=== PATIENT | female | born 1955 | race Caucasian/White ===

== ENCOUNTER 2019-02-19 07:26 | Day surgery (SDC) | payer MEDICAID ==
[2019-02-19] MEDS ORDERED: Midazolam 1 MG/ML 2 ML SDV ONE (07:47)
[2019-02-19] MEDS ORDERED: fentaNYL 100 MCG/2 ML SDV ONE (07:47)
[2019-02-19] MEDS ORDERED: Propofol 200 MG/20 ML SDV ONE ×2 (07:47→09:50)
[2019-02-19] MEDS ORDERED: Lactated Ringers 1,000 ML IV SCH (08:15)
[2019-02-19] MEDS ORDERED: Atropine 0.4 MG/ML SDV ONE (09:45)
--- NOTE | 2019-02-19 14:45 | OR ---
DATE OF PROCEDURE: 02/19/2019 PREOPERATIVE DIAGNOSIS: History of colon polyps. POSTOPERATIVE DIAGNOSES: Unremarkable colonoscopy, history of colon polyps. PROCEDURE: Colonoscopy to the cecum. SURGEON: Frank Lynne MD ANESTHESIA: IV anesthesia with monitored anesthesia care. INDICATION: This 63-year-old white female is referred for a colonoscopy because of a history of colon polyps. She says her last colonoscopic exam was done 6 years ago. I counseled her for the procedure, including risks and alternatives, and she gave her informed consent to proceed. DESCRIPTION OF PROCEDURE: The patient was placed in the left lateral decubitus position. IV anesthesia was administered by the Anesthesia Service. Time-out was held. A rectal exam was performed, which was unremarkable. The flexible video Olympus colonoscope was introduced through her anus, up her rectum, and out her colon all the way to the cecum. To accomplish this, we had to apply some abdominal compression. Once the cecum was reached, the scope was slowly withdrawn, examining the mucosa throughout. No mucosal abnormalities were noted. The scope was retroflexed in the rectum with the distal rectum appearing unremarkable. The scope was straightened and removed. She tolerated the procedure well. Frank Lynne MD /[id number]
== END 2019-02-19 11:06 | disposition home or self-care (01) ==
LOC: JP.SDS 07:26
PROVIDERS: ATTEND Surgery
DX: Z12.11 Encounter for screening for malignant neoplasm of colon (principal); E03.9 Hypothyroidism, unspecified; F41.9 Anxiety disorder, unspecified; Z86.010 Personal history of colon polyps
CPT/HCPCS: 45378; J0461; J2250; J2704; J3010; J7120

== ENCOUNTER 2022-02-13 09:39 | Emergency (ER) | payer MEDICARE ==
[2022-02-13] MEDS ORDERED: Ibuprofen 400 MG Tab PO ONE (10:07)
== END 2022-02-13 12:20 | disposition home or self-care (01) ==
LOC: JP.ED 09:39
DX: S52.532A Colles' fracture of left radius, initial encounter for closed fracture (principal); E03.9 Hypothyroidism, unspecified; Z90.49 Acquired absence of other specified parts of digestive tract; Z79.899 Other long term (current) drug therapy; Z87.891 Personal history of nicotine dependence; W01.0XXA Fall on same level from slipping, tripping and stumbling without subsequent striking against object, initial encounter
CPT/HCPCS: 73110; 99281; 99283; A9270